=== PATIENT | female | born 1960 | race Caucasian/White ===

== ENCOUNTER 2019-11-07 00:16 | Outpatient (CLI) | payer BC, SELFPAY ==
[2019-11-07 15:57] LABS: SARS-CoV-2 RNA PCR Negative
== END 2019-11-07 00:17 | disposition home or self-care (01) ==
LOC: ANHCOVIDDT 00:16
PROVIDERS: PCP Physician Assistant; Visit Provider Internal Medicine Gastroenterology
DX: Z01.818 Encounter for other preprocedural examination (principal); Z11.59 Encounter for screening for other viral diseases
CPT/HCPCS: 87635; C9803; U0003

== ENCOUNTER 2019-11-09 05:19 | Day surgery (SDC) | payer BC, SELFPAY ==
[2019-11-01 11:10] VITALS: BMI 27.3
--- NOTE | 2019-11-08 13:34 | WPDANESEPPF ---
Anes - Initial Pre Proc Eval Procedure: Operation Date: 09/23/19 09:00 Proposed Procedures p Screening Colonoscopy - Dayo Stephenson MD Operation Date: 11/09/19 07:30 Proposed Procedures p Screening Colonoscopy - Dayo Stephenson MD Date/Time: 11/08/19 13:34 Surgeon: Dayo Stephenson MD Pre Op Diagnosis: Neoplasm Screening, Hx of Polyps Patient Data Age: 59 Gender: F Height: 5 ft 3 in Weight: 70 kg Allergies Allergy/AdvReac Type Severity Reaction Status Date / Time Latex, Natural Rubber Allergy Intermediate Rash Verified 11/09/19 06:30 Home Medications Medication Instructions Recorded Confirmed Type albuterol sulfate 1 inh INHALATION QID PRN 11/01/19 11/01/19 History Patient hx anesthesia problems: none Family hx anesthesia problems: none PMFSH Past Medical History Medical History COPD (chronic obstructive pulmonary disease) GERD (gastroesophageal reflux disease) Family History Family History Mother No family history of malignant neoplasm Father No family history of hypertension Social History Social History Smoking status: Former smoker Second hand tobacco smoke exposure: Yes Smoking end date: 06/01/15 Alcohol intake: current Anes - Eval Final PreProcedure Day of Procedure 11/08/19 13:34 Patient weight: normal Heart: regular rate and rhythm Lungs: clear to auscultation Airway: Mallampati scale class II Neurological: alert and oriented Last oral intake: >/= 8 hours ASA classification: III Emergent: no Anesthetic plan: proceed Anesthesia type and monitoring: general GIVS and standard monitoring Informed Consent: The patient's anesthetic plan and its attendant risks and benefits were discussed with the patient/family/POA. Questions were solicited and answers provided to the satisfaction of the patient/family/POA.
[2019-11-09 06:31] VITALS: BP 130/80; PULSE 80; RESP 18; TEMP 36.4; O2SAT 100
[2019-11-09] MEDS: LACTATED RINGERS 1,000 ML 150 ML IV CONT (06:42)
--- NOTE | 2019-11-09 07:12 | P.HP_ITS ---
History of Present Illness History of Present Illness Consent: Risks, benefits, and alternatives have been discussed and questions answered. Patient agrees to proceed with procedure. Chief complaint: Neoplasm Screening, Hx of Polyps Narrative: Concha Flores is a 59 year old female Here for colon cancer screening. She had an adenomatous polyp removed about 8 years ago [facility] Past Medical History Medical History COPD (chronic obstructive pulmonary disease) GERD (gastroesophageal reflux disease) Family History Family History Mother No family history of malignant neoplasm Father No family history of hypertension Social History Social History Smoking status: Former smoker Second hand tobacco smoke exposure: Yes Smoking end date: 06/01/15 Alcohol intake: current Meds Home Medications and Allergies Home Medications Medication Instructions Recorded Confirmed Type albuterol sulfate 1 inh INHALATION QID PRN 11/01/19 11/01/19 History Allergies Allergy/AdvReac Type Severity Reaction Status Date / Time Latex, Natural Rubber Allergy Intermediate Rash Verified 11/09/19 06:30 Vital Signs Vital Signs - 24 hr 11/09/19 06:31 Temperature 36.4 C L Pulse Rate 80 Respiratory Rate 18 Blood Pressure 130/80 Pulse Oximetry 100 Exam Resp: Auscultation: clear to auscultation bilaterally Cardio: Rate: regular rate Rhythm: regular rhythm GI: GI Palp: Yes Soft to palpation and No Tenderness to palpation present (GI) Assessment and Plan Assessment and plan (1) Colon cancer screening: Code(s): Z12.11 - Encounter for screening for malignant neoplasm of colon Status: Acute Assessment and Plan: Colonoscopy with possible biopsy or polypectomy or cautery or injection of substances.
[2019-11-09 07:47] VITALS: BP 118/73; PULSE 81; RESP 19; O2SAT 97
[2019-11-09 07:59] VITALS: BP 111/74; PULSE 69; RESP 17; O2SAT 99
[2019-11-09 08:09] VITALS: BP 127/77; PULSE 66; RESP 17; O2SAT 100
== END 2019-11-09 08:19 | disposition home or self-care (01) ==
PROVIDERS: PCP Physician Assistant; Visit Provider Internal Medicine Gastroenterology
PROC: 0DJD8ZZ Inspection of Lower Intestinal Tract, Via Natural or Artificial Opening Endoscopic (ICD-10-PCS; CPT 45378; principal; 2019-11-09 07:30)
DX: Z12.11 Encounter for screening for malignant neoplasm of colon (principal); D12.0 Benign neoplasm of cecum; D12.4 Benign neoplasm of descending colon; Z85.118 Personal history of other malignant neoplasm of bronchus and lung; Z91.040 Latex allergy status
CPT/HCPCS: 45380; 45385; 88305; J2704; J7120

== ENCOUNTER → 2020-06-22 11:50 | Outpatient (CLI) | payer BC, SELFPAY ==
--- NOTE | ~2020-06-22 | MM_ITS ---
EXAMINATION: MM screening octavio BI w luis HISTORY: Screening mammogram TECHNIQUE: Craniocaudal and mediolateral oblique 3-D tomosynthesis images were obtained and synthetic 2-D images were generated.. Bilateral rotated lateral cc views. CAD analysis was submitted and inter preted. COMPARISON: 03/12/2019, 08/12/2017 bilateral digital screening mammogram examinations BREAST PARENCHYMAL COMPOSITION: There are scattered areas of fibroglandular density. FINDINGS: There is a biopsy marker on the right; history of prior benign right breast biopsy in 2016. Stable fibroglandular asymmetry. There is no evidence of suspicious mass, calcification, or architec tural distortion to suggest malignancy in either breast. There has been no suspicious interval change . IMPRESSION: 1. No mammographic evidence of malignancy. 2. Recommend routine screening mammography in one year. BI-RADS Category 2: Benign finding(s). Reviewed, dictated and finalized at location A. GEMENT INTERN
== END ==
PROVIDERS: Visit Provider Physician Assistant
DX: Z12.31 Encounter for screening mammogram for malignant neoplasm of breast (principal)
CPT/HCPCS: 77063; 77067

== ENCOUNTER 2020-08-14 08:45 | Outpatient (CLI) | payer BC, SELFPAY | END 2020-08-14 08:46 | disposition home or self-care (01) | LOC: ANHCOVIDVC 08:45 | DX: Z23 Encounter for immunization (principal) | CPT/HCPCS: 0001A; 91300 ==

== ENCOUNTER 2020-08-20 14:56 | Outpatient (CLI) | payer BC, SELFPAY ==
[2020-08-20 15:40] LABS: Hematocrit 38.8 % (37.0-47.0); Hemoglobin 13.1 g/dL (12.0-15.0); Mean Corpuscular HGB Conc 33.8 g/dl (32-36); Mean Corpuscular Hemoglobin 33.3 pg (26-34); Mean Corpuscular Volume 98.7 fl (80-100); Mean Platelet Volume 10.4 fl (7.4-10.4); Platelet Count Result 405 k/mm3 (150-375); Red Blood Count 3.93 M/mm3 (4.2-5.4); Red Cell Distribution Width 12.8 % (11.5-14.5); White Blood Count 7.3 K/mm3 (4.5-10.0)
[2020-08-20 15:50] LABS: Alanine Aminotransferase 50 U/L (4-35); Albumin Level 4.6 g/dL (3.5-5.1); Alkaline Phosphatase 73 U/L (38-126); Anion Gap 8 mmol/L (8-16); Aspartate Amino Transferase 62 U/L (14-36); Bilirubin,Total 0.4 mg/dL (0.2-1.3); Blood Urea Nitrogen 11 mg/dL (7-17); Carbon Dioxide 29 mmol/L (22-30); Chloride 100 mmol/L (98-107); Estimated Glomerular Filt Rate > 60; Glucose 89 mg/dL (65-105); Potassium 4.3 mmol/L (3.4-5.0); Sodium 137 mmol/L (137-145)
[2020-08-20 16:31] LABS: Iron 282 ug/dL (37-170)
[2020-08-20 16:41] LABS: Percent Iron Saturation 111 % (20-50)
== END 2020-08-20 14:57 | disposition home or self-care (01) ==
LOC: ANHLAB 14:59
PROVIDERS: PCP Internal Medicine; Visit Provider Internal Medicine Hematology & Oncology
DX: E83.19 Other disorders of iron metabolism (principal)
CPT/HCPCS: 36415; 80053; 82728; 83540; 83550; 85027

== ENCOUNTER 2020-09-04 08:33 | Outpatient (CLI) | payer BC, SELFPAY | END 2020-09-04 08:34 | LOC: ANHCOVIDVC 08:33 | PROVIDERS: PCP Internal Medicine | DX: Z23 Encounter for immunization (principal) | CPT/HCPCS: 0002A; 91300 ==

== ENCOUNTER 2020-12-04 09:32 | Outpatient (CLI) | payer BC, SELFPAY ==
[2020-12-04 11:32] LABS: Cholesterol 239 mg/dL (0-200); HDL Direct 51 mg/dL; Triglycerides 135 mg/dL (<150)
[2020-12-04 11:43] LABS: LDL Cholesterol Direct 129 mg/dL
[2020-12-04 11:51] LABS: Free T4 Free Thyroxine 1.17 ng/mL (0.78-2.19)
[2020-12-04 12:38] LABS: Folic Acid 4.1 ng/mL (2.76->20)
== END 2020-12-04 09:33 | disposition home or self-care (01) ==
LOC: ANHLAB 09:37
PROVIDERS: Physician Assistant; PCP Internal Medicine; Visit Provider Internal Medicine Hematology & Oncology
DX: E03.9 Hypothyroidism, unspecified (principal); R74.8 Abnormal levels of other serum enzymes; D58.2 Other hemoglobinopathies
CPT/HCPCS: 36415; 80061; 82607; 82746; 84439; 84443

== ENCOUNTER 2021-12-31 09:04 | Outpatient (CLI) | payer BC, SELFPAY ==
[2021-12-31 15:17] LABS: Cholesterol 230 mg/dL (0-200); HDL Direct 46 mg/dL; Triglycerides 122 mg/dL (<150)
[2021-12-31 15:28] LABS: Free T4 Free Thyroxine 1.26 ng/mL (0.78-2.19)
[2021-12-31 15:28] LABS: LDL Cholesterol Direct 131 mg/dL
[2021-12-31 15:52] LABS: Thyroid Stimulating Hormone 0.968 uIU/mL (0.465-4.680)
[2021-12-31 16:28] LABS: Folic Acid 4.7 ng/mL (2.76->20)
== END 2021-12-31 09:05 | disposition home or self-care (01) ==
LOC: ANHLAB 09:05
PROVIDERS: PCP Physician Assistant; Visit Provider Internal Medicine Hematology & Oncology
DX: Z00.00 Encounter for general adult medical examination without abnormal findings (principal); E03.9 Hypothyroidism, unspecified
CPT/HCPCS: 36415; 80061; 82607; 82746; 84439; 84443

== ENCOUNTER → 2022-10-03 12:39 | Outpatient (CLI) | payer BC, SELFPAY ==
--- NOTE | ~2022-10-03 | MM_ITS ---
EXAMINATION: MM screening octavio BI w luis HISTORY: Screening mammogram TECHNIQUE: Craniocaudal and mediolateral oblique 3-D tomosynthesis images were obtained and synthetic 2-D images were generated. CAD analysis was submitted and interpreted. COMPARISON: 06/22/2020, 03/12/2019 BREAST PARENCHYMAL COMPOSITION: There are scattered areas of fibroglandular density. FINDINGS: There is a stable focal asymmetry in the middle third of the inner right breast with an ass ociated biopsy marker. No suspicious mass, calcification, or architectural distortion are identified in either breast to suggest malignancy. There has been no suspicious interval change. IMPRESSION: 1. No mammographic evidence of malignancy. 2. Recommend routine screening mammography in one year. BI-RADS Category 2: Benign finding(s). Reviewed, dictated and finalized at location A.
== END ==
PROVIDERS: PCP Physician Assistant; Visit Provider Physician Assistant
DX: Z12.31 Encounter for screening mammogram for malignant neoplasm of breast (principal)
CPT/HCPCS: 77063; 77067

== ENCOUNTER 2023-01-16 14:42 | Outpatient (CLI) | payer BC, SELFPAY ==
[2023-01-16 16:32] LABS: Cholesterol 263 mg/dL (0-200); HDL Direct 54 mg/dL; Triglycerides 199 mg/dL (<150)
[2023-01-16 16:37] LABS: Rheumatoid Factor < 12.0 IU/ML (<12)
[2023-01-16 16:43] LABS: Erythrocyte Sedimentation Rate 18 mm/hr (0-20); LDL Cholesterol Direct 145 mg/dL
[2023-01-16 16:58] LABS: Free T4 Free Thyroxine 1.52 ng/mL (0.78-2.19)
[2023-01-16 17:07] LABS: Thyroid Stimulating Hormone 0.812 uIU/mL (0.465-4.680)
== END 2023-01-16 14:43 | disposition home or self-care (01) ==
LOC: ANHLAB 14:45
PROVIDERS: PCP Physician Assistant; Visit Provider Internal Medicine Hematology & Oncology
DX: Z00.00 Encounter for general adult medical examination without abnormal findings (principal); E03.9 Hypothyroidism, unspecified; M25.50 Pain in unspecified joint
CPT/HCPCS: 36415; 80061; 84439; 84443; 85652; 86430

== ENCOUNTER 2023-07-13 09:16 | Outpatient (CLI) | payer BC, SELFPAY ==
--- NOTE | ~2023-07-13 | US_ITS ---
Limited Abdominal Sonogram: Real-time sonographic imaging of the right upper quadrant was performed. Clinical History: Hereditary hemochromatosis Findings: The liver appears normal with no evidence of mass lesion or bile duct dilatation. Main por hilaria vein demonstrates normal direction of flow. The gallbladder is well distended, and appears normal with no evidence of gallstone or wall thickening. The common bile duct measures 5 mm. The visualize d pancreas, aorta, and IVC are unremarkable. Impression: No significant abnormality seen. Reviewed, dictated and finalized at location M. Y LINE TECHNICIAN Impression: No significant abnormality seen.
== END 2023-07-13 09:17 | disposition home or self-care (01) ==
PROVIDERS: PCP Physician Assistant; Visit Provider Student in an Organized Health Care Education/Training Program
DX: E83.110 Hereditary hemochromatosis (principal)
CPT/HCPCS: 76705

== ENCOUNTER 2024-01-20 08:26 | Outpatient (CLI) | payer BC, SELFPAY ==
[2024-01-20 08:44] LABS: Hematocrit 42.7 % (37.0-47.0); Hemoglobin 14.6 g/dL (12.0-15.0); Mean Corpuscular HGB Conc 34.2 g/dl (32-36); Mean Corpuscular Hemoglobin 30.7 pg (26-34); Mean Corpuscular Volume 89.9 fl (80-100); Mean Platelet Volume 10.3 fl (7.4-10.4); Platelet Count Result 366 k/mm3 (150-375); Red Blood Count 4.75 M/mm3 (4.2-5.4); Red Cell Distribution Width 13.3 % (11.5-14.5)
[2024-01-20 10:33] LABS: Cholesterol 246 mg/dL (0-200); Triglycerides 130 mg/dL (<150)
[2024-01-20 10:34] LABS: HDL Direct 49 mg/dL; Iron 82 ug/dL (37-170)
[2024-01-20 10:45] LABS: LDL Cholesterol Direct 144 mg/dL
[2024-01-20 11:00] LABS: Percent Iron Saturation 29 % (20-50)
== END 2024-01-20 08:27 | disposition home or self-care (01) ==
LOC: ANHLAB 08:29
PROVIDERS: Internal Medicine; PCP Physician Assistant; Visit Provider Internal Medicine Hematology & Oncology
DX: E78.5 Hyperlipidemia, unspecified (principal); E03.9 Hypothyroidism, unspecified; E53.8 Deficiency of other specified B group vitamins; E83.110 Hereditary hemochromatosis
CPT/HCPCS: 36415; 80061; 82607; 82728; 83540; 83550; 84443; 85027

== ENCOUNTER 2024-11-29 10:15 | Outpatient (CLI) | payer BC, SELFPAY ==
--- NOTE | ~2024-11-29 | MM_ITS ---
EXAMINATION: MM screening octavio BI w luis HISTORY: Screening mammogram, family history of breast cancer in her sister. TECHNIQUE: Craniocaudal and mediolateral oblique 3-D tomosynthesis images were obtained and synthetic 2-D images were generated. CAD analysis was submitted and interpreted. COMPARISON: 10/03/2022, 06/22/2020 BREAST PARENCHYMAL COMPOSITION:Not Dense. There are scattered areas of fibroglandular density. FINDINGS: No suspicious mass, calcification, or architectural distortion are identified in either ginna ast to suggest malignancy. There has been no suspicious interval change. IMPRESSION: No mammographic evidence of malignancy. Recommend routine screening mammography in one year. BI-RADS Category 1: Negative Reviewed, dictated and finalized at location .
== END 2024-11-29 10:16 | disposition home or self-care (01) ==
LOC: MICIMG 10:16
PROVIDERS: PCP Internal Medicine; Visit Provider Internal Medicine
DX: Z12.31 Encounter for screening mammogram for malignant neoplasm of breast (principal)
CPT/HCPCS: 77063; 77067

== ENCOUNTER 2025-04-05 09:27 | Outpatient (CLI) | payer BC, SELFPAY ==
[2025-04-05 10:08] LABS: Cholesterol 242 mg/dL (0-200); HDL Direct 69 mg/dL; Triglycerides 115 mg/dL (<150)
--- OUTSIDE RECORDS SUMMARY | 2025-04-05 10:10 | XMS_ITS | Clinical Summary ---
Author Organization [facility] Address [address] [facility] [place] [address] Care Team Providers Care Director Of Audiology Name Role Phone Omid Whitehead Primary Care Provider [phone] Allergies Active Allergy Reactions Criticality Noted Date Comments Adhesive Rash Medium 05/17/2020 Medications levothyroxine 50 mcg tablet TK 1 T PO D 04/24/2020 Active celecoxib (CeleBREX) 200 mg capsule Take 200 mg by mouth daily. 12/04/2022 Active Active Problems Problem Noted Date Diagnosed Date Hereditary hemochromatosis 06/12/2020 Iron overload 05/17/2020 Encounters Date Type Department Care Team Description 03/29/2025 External Device Data STL ABSTRACTION Provider, Abstract 03/28/2025 External Device Data STL ABSTRACTION Provider, Abstract 01/03/2025 External Device Data STL ABSTRACTION Provider, Abstract from Last 3 Months Family History Medical History Relation Name Comments Healthy Brother Skin Cancer Father Cervical Cancer Mother Healthy Sister Relation Name Status Comments Brother Alive Father Alive Mother Alive Sister Alive Social History Tobacco Use Types Packs/Day Years Used Date Smoking Tobacco: Former Cigarettes Q uit: 11/15/2015 Tobacco Cessation:Counseling Given: Not Answered Alcohol Use Standard Drinks/Week Comments Not Currently 0 (1 standard drink = 0.6 oz pur e alcohol) Comments Unknown Sex and Gender Information Value Date Recorded Sex Assigned at Female 04/03/2025 9:24 AM STRATEGIC ANALYST Legal Sex Female 1:12 PM STRATEGIC ANALYST Gender Identity Female 04/03/2025 9:24 AM STRATEGIC ANALYST Sexual Orientation Not on file Last Filed Vital Signs Vital Sign Reading Time Taken Comments Blood Pressure 120/68 10/07/2024 12:36 PM CDT Pulse 98 10/07/2024 12:36 PM CDT Temperature 36.6 C (97.9 F) 10/07/2024 12:36 PM CDT Respiratory Rate 15 10/07/2024 12:36 PM CDT Oxygen Saturation 97% 10/07/2024 12:36 PM CDT Inhaled Oxygen Concentration - - Weight 62 kg (136 lb 9.6 oz) 10/07/2024 12:36 PM CDT Height 160 cm (5' 3) 03/05/2022 3:16 PM CDT Body Mass Index 24.2 03/05/2022 3:16 PM CDT Plan of Treatment Upcoming Encounters Date Type Department Care Team (Late st Contact Info) Description 04/10/2025 3:30 PM STRATEGIC ANALYST Office Visit [facility] Oncology and Hematology [facility] [address] [facility] [address] [place] [address] Harjinder Kramer MD [address] [facility] [address] [place] [address] Health Maintenance Due Date Last Done Comments DTAP/TDAP/TD VACCINES (1 - Tdap) 1980 BREAST CANCER SCREENING 2001 COLORECTAL SCREENING 2006 Colorectal Cancer Screening 2006 FIT-DNA Q 3 years 2006 FIT/FOBT Q 1 year 2006 Flex Sig/CT Colonography Q 5 years 2006 RSV VACCINE (60+ or ) (1 - Risk 50-74 years 1-dose series) 08/13/2011 ZOSTER VACCINE (1 of 2) 08/13/2011 Preventative Visit- Commercial 06/01/2024 INFLUENZA VACCINE (#1) 2024 Insurance [facility] Care Teams Director Of Audiology Relationship Specialty Start Date End Date Omid Whitehead DO [address] [facility] [address] [facility] [address] [place] [id number] PCP - General Internal Medicine 03/24/24
--- OUTSIDE RECORDS SUMMARY | 2025-04-05 10:10 | XMS_ITS | Clinical Summary ---
Author Organization [facility] Address [address] [place] [address] Care Team Providers Care Outside Maintenance Worker Name Role Phone Omid Whitehead Primary Care Provider [phone] Allergies Active Allergy Reactions Criticality Noted Date Comments Adhesive Rash Medium Latex, Natural Rubber Rash Medium 08/19/2021 Medications cholecalciferol (VITAMIN D-3) 2,000 unit tablet Active azithromycin (ZITHROMAX) 250 mg tablet Take by mouth. 09/10/2010 Active escitalopram (LEXAPRO) 10 mg tablet Take 10 mg by mouth. Active estradiol (VIVELLE-DOT) 0.05 mg/[address] 1 patch on the skin every 3 (three) days. Active raNITIdine (ZANTAC) 150 mg tablet Take 150 mg by mouth 06/04/2010 Active predniSONE (DELTASONE) 10 mg tablet Take by mouth. 10/01/2010 Active ezetimibe-simva statin (VYTORIN) 10-20 mg per tablet Take 1 tablet by mouth. 04/29/2010 Active citalopram (CeleXA) 20 mg tablet 11/19/2017 Active levoFLOXacin (LEVAQUIN) 500 mg tablet 11/06/2017 Active predniSONE (DELTASONE) 20 mg tablet 11/06/2017 Active sulfamethoxazol e-trimethoprim (BACTRIM,SEPTRA ) 800-160 mg per tablet 10/27/2017 Active levothyroxine (SYNTHROID) 50 mcg tablet TK 1 T PO D 04/24/2020 Active cyanocobalamin- cobamamide 5,000-100 mcg tablet, sublingual Place 5,000 mcg under the tongue daily Active celecoxib (CeleBREX) 200 mg capsule Take 1 capsule (200 mg total) by mouth daily 12/04/2022 Active cyanocobalamin (Vitamin B-12) 500 mcg tablet Take 1 tablet (500 mcg total) by mouth daily Active traMADoL (ULTRAM) 50 mg tablet Take 1 tablet (50 mg total) by mouth 11/10/2024 Active Active Problems Patient Care Coordination No te Formatting of this note migh t be different from the original. Dr. Lin [place], [place] Unsure of first name or practice name Problem Noted Date Diagnosed Date Pulmonary emphysema 11/01/2015 Malignant neoplasm of lung 11/01/2015 Encounter for preventive health examination 09/30 Encounters Date Type Department Care Team Description 01/25/2025 1:00 PM CDT Office Visit [facility] Medicine Surgery [address] [facility] [address] [facility] [address] [place] [address] Arnie Stovall MD History of lung cancer (Primary Dx) 01/25/2025 11:32 AM CDT - 01/25/2025 11:59 PM CDT Hospital Encounter [facility] [address] [place] [address] Arnie Stovall MD Malignant neoplasm of upper lobe of right lung (HCC) Discharge Disposition: Discharge to home or self care from Last 3 Months Surgical History Surgery Date Site/Laterality Comments MD TOTAL ABDOMINAL HYSTERECT W/WO RMVL TUBE OVARY Hysterectomy - (2002). (Added by TW Conv) MD BIOPSY LUNG/MEDIASTINUM PERCUTANEOUS NEEDLE Biopsy Lung Percutaneous - (Added by TW Conv) MD TONSILLECTOMY PRIMARY/SECONDARY <AGE 12 Tonsillectomy - (Added by TW Conv) Medical History Medical History Date Comments Personal history of other di seases of the digestive system History of irritable bowel s yndrome - (Added by TW Conv) Personal history of other di seases of the digestive system History of esophageal reflux - (Added by TW Conv) Closed fracture of nasal bone Br oken nose - (Added by TW Conv) Family History Medical History Relation Name Comments Hyperlipidemia Father Family histor y of hypercholesterolemia - (Added by TW Conv) Hypertension Father Family history of hypertension - (Added by TW Conv) COPD Mother Family history of chronic obstructive pulmonary disease - (Added by TW Conv) Emphysema Mother Emphysema/COPD - (Added by TW Conv) Uterine cancer Mother Family histor y of malignant neoplasm of uterus - (Added by TW Conv) Skin cancer Other 1 Family history of skin cancer - (Added by TW Conv) Heart defect Other 2 Heart problem - (Added by TW Conv) Heart defect Paternal Grandmother Heart p roblem - (Added by TW Conv) Scleroderma Paternal Grandmother Family history of scleroderma - (Added by TW Conv) Relation Name Status Comments Father Mother Other 1 Other 2 Paternal Grandmother Social History Tobacco Use Types Packs/Day Years Used Date Smoking Tobacco: Former Smokeless Tobacco: Never Comments Unknown Sex and Gender Information Value Date Recorded Sex Assigned at Not on file Legal Sex Female 6:53 PM TRAVELERS' AID WORKER Gender Identity Not on file Sexual Orientation Not on file Last Filed Vital Signs Vital Sign Reading Time Taken Comments Blood Pressure 113/72 01/25/2025 12:11 PM CDT Pulse 84 01/25/2025 12:11 PM CDT Temperature 36.3 C (97.3 F) 01/25/2025 12:11 PM CDT Respiratory Rate 16 01/25/2025 12:11 PM CDT Oxygen Saturation 97% 01/25/2025 12:11 PM CDT Inhaled Oxygen Concentration - - Weight 60.9 kg (134 lb 3.2 oz) 01/25/2025 12:11 PM CDT Height 157.5 cm (5' 2) 01/25/2025 12:11 PM CDT Body Mass Index 24.55 01/25/2025 12:11 PM CDT Plan of Treatment Health Maintenance Due Date Last Done Comments Breast Cancer Screening-Mammogram 1961 Cervical Cancer Screening 1961 Colon Cancer Screening-Colonoscopy 1961 Depression Screening 1961 Hepatitis C Screening 1961 Hepatitis B Screening 08/13/1979 Regular Well Visit/Exam 18-64 08/13/1979 Zoster Vaccine (1 of 2) 08/13/2011 Pneumococcal vaccine <65 (2 of 2 - PCV) 07/26/2014 0 07/26/2013 DTaP/Tdap/Td Vaccine (2 - Td or Tdap) 06/12/202205/2013 Covid-19 Vaccine (3 - season) 01/30/202510/2020, 08/14/2020 Influenza Vaccine (#1) 2025 Procedures Procedure Name Priority Date/Time Associated Diagnosis Comments CT CHEST WO CONTRAST Schedule Routine, Read Routine (OP Routine) 01/25/2025 11:54 AM CDT Malignant neoplasm of upper lobe of right lung (HCC) from Last 3 Months Results * CT chest without contrast (01/25/2025 11:54 AM CDT) Anatomical Region Laterality Modality Body N/A Computed Tomogra phy 01/25/2025 12:0 1 PM CDT Impressions 01/25/2025 12:01 PM CDT 1. Stable postoperative change without evidence of metastasis or recurrence. Electronically signed by: Doroteo Blair M.D. Narrative 01/25/2025 12:01 PM CDT EXAMINATION: Computed tomography of the chest without intravenous contrast HISTORY: Pulmonary nodule follow-up; right upper lobe lung cancer TECHNIQUE: Transaxial computed tomographic images of the chest were obtained without intravenous contrast according to the standard protocol. COMPARISON: December 2023 FINDINGS: Right upper lobectomy change is again seen without suspicious findings of the resection site or ligated structures. There is mild severity paraseptal and centrilobular emphysematous changes in the upper lung predominant distribution. No suspicious pulmonary nodule or mass. No acute consolidation in the lung. Heart size within normal limit. Coronary calcifications. There are benign calcified right hilar granulomatous lymph nodes are stable. No suspicious thoracic lymphadenopathy. Upper abdomen is without suspicious findings for malignancy. There is mild thoracic and moderate to severe abdominal aortic atherosclerotic calcifications. No suspicious osseous lesion. Procedure Note Doroteo Blair MD - 01/25/2025 EXAMINATION: Computed tomography of the chest without intravenous contrast HISTORY: Pulmonary nodule follow-up; right upper lobe lung cancer TECHNIQUE: Transaxial computed tomographic images of the chest were obtained without intravenous contrast according to the standard protocol. COMPARISON: December 2023 FINDINGS: Right upper lobectomy change is again seen without suspicious findings of the resection site or ligated structures. There is mild severity paraseptal and centrilobular emphysematous changes in the upper lung predominant distribution. No suspicious pulmonary nodule or mass. No acute consolidation in the lung. Heart size within normal limit. Coronary calcifications. There are benign calcified right hilar granulomatous lymph nodes are stable. No suspicious thoracic lymphadenopathy. Upper abdomen is without suspicious findings for malignancy. There is mild thoracic and moderate to severe abdominal aortic atherosclerotic calcifications. No suspicious osseous lesion. IMPRESSION: 1. Stable postoperative change without evidence of metastasis or recurrence. Electronically signed by: Doroteo Blair M.D. Arnie Stovall MD IMG CT PROCEDURES Final R esult from Last 3 Months Insurance [employer] ACC[employer] ACCESS Member Subscriber Plan / Payer (Ef fective 2019-Present) Name:Concha Flores Member ID:[id number] Relation to Subscriber:Self Name:Concha Flores Subscriber ID:[id number] Payer ID:[id number] (NAIC) Type:[employer] Address: [address] ACCESS OOS ANTHEM ACCESS Care Teams Outside Maintenance Worker Relationship Specialty Start Date End Date Omid Whitehead DO PCP - General Internal Medicine 01/12/24
--- OUTSIDE RECORDS SUMMARY | 2025-04-05 10:10 | XMS_ITS | Clinical Summary ---
Author Organization [facility] Address [address] [place] [address] Care Team Providers Care Sports Bookmaker Name Role Phone Unavailable Primary Care Provider Unavailabl e Source Comments [facility],non-owned Affiliates and Associated Physician Practices is amultiple site organization consisting of ambulatory clinics and hospital sitesin [place], [place] and [place]. This disclosure is being madepursuant to the Care Everywhere program and may not contain all information available regarding this patient. Last updated 18.[facility] Allergies No known active allergies Medications * Be aware that medications may not be up to date on this document. Alwaysverify current medications with the patient. ezetimibe-simva statin (VYTORIN) 10-20 MG tablet Take 1 Tab by mouth at bedtime. 30 Tab 11 04/29/2010 Active ranitidine (ZANTAC) 150 MG tabletIndicatio ns:GERD (gastroesophage al reflux disease) Take 1 Tab by mouth 2 times daily. 60 Tab 5 06/04/2010 Active estradiol (VIVELLE) 0.05 MG/24HR patch Apply 1 Patch to skin every 3 days. Active escitalopram (LEXAPRO) 10 MG tablet Take 10 mg by mouth daily. Active azithromycin (ZITHROMAX) 250 mg yudith Take by mouth. 2 tablets day 1, then 1 tablet daily for 4 days 1 Tab 0 09/10/2010 Active predniSONE (DELTASONE) 10 MG tablet Take by mouth. 4 daily for 3 days, 3 daily for 3 days, 2 a day for 3 days, once daily for 3 days. 30 Tab 0 10/01/2010 Active Active Problems Problem Noted Date Diagnosed Date Hyperlipidemia GERD (gastroesophageal reflux disease) Colon polyp Family History Medical History Relation Name Comments Hypertension Father Stroke Other Grandparents Relation Name Status Comments Father Other Social History Tobacco Use Types Packs/Day Years Used Date Smoking Tobacco: Every Day Cigarettes Smokeless Tobacco: Never Alcohol Use Standard Drinks/Week Comments Yes 0 (1 standard drink = 0.6 oz pur e alcohol) 3-4 M - F Comments No Sex and Gender Information Value Date Recorded Sex Assigned at Not on file Legal Sex Female 6:47 AM FRUIT CANNER Gender Identity Not on file Sexual Orientation Not on file Last Filed Vital Signs Vital Sign Reading Time Taken Comments Blood Pressure 107/78 08/15/2010 7:44 AM CDT Pulse 72 08/15/2010 7:44 AM CDT Temperature - - Respiratory Rate 12 06/04/2010 3:42 PM FRUIT CANNER Oxygen Saturation 99% 08/15/2010 8:41 AM CDT Inhaled Oxygen Concentration - - Weight 65.8 kg (145 lb) 08/15/2010 7:44 AM CDT Height 160 cm (5' 3) 08/15/2010 7:44 AM CDT Body Mass Index 25.69 08/15/2010 7:44 AM CDT Plan of Treatment Health Maintenance Due Date Last Done Comments COLOGUARD (AGES 45-75) - COL ON CA SCREENING 1961 COLON MONITORING 1961 COLONOSCOPY - COLON CA SCREENING 1961 CT COLONOGRAPHY - COLON CA SCREENING 1961 Colorectal Cancer Screening 1961 FIT - COLON CA SCREENING 1961 FLEX SIG - COLON CA SCREENING 1961 MAMMOGRAM 1961 HIV SCREENING 1976 HEPATITIS C SCREENING 08/08/1979 DTAP/TDAP/TD VACCINES (1 - Tdap) 1980 PNEUMOCOCCAL VACCINE 50+ (1 of 2 - PCV) 1980 ZOSTER VACCINE (1 of 2) 08/13/2011 DEPRESSION SCREENING 06/01/2024 COVID-19 VACCINE (1 - 2024-2 5 season) 2025 INFLUENZA VACCINE (#1) 2025 Respiratory Syncytial Virus (RSV) Vaccine Pt: or over 60 yrs (1 - 1-dose 75+ series) 2036 HEPATITIS B VACCINE Aged Out No longe r eligible based on patient's age to complete this topic HIB VACCINE Aged Out No longer eligi ble based on patient's age to complete this topic HPV VACCINE Aged Out No longer eligi ble based on patient's age to complete this topic MENINGOCOCCAL (Group B) VACC INE SHARED DECISION-MAKING Aged Out No longer eligibl e based on patient's age to complete this topic MENINGOCOCCAL GROUPS A/C/Y/W VACCINE Aged Out No longer eligible b ased on patient's age to complete this topic
--- OUTSIDE RECORDS SUMMARY | 2025-04-05 10:10 | XMS_ITS ---
Author Organization [facility] Address [address] [place] [address] Care Team Providers Care Copper Roller Handler Printing Name Role Phone VenturaOmid david Primary Care Provider [phone] Active Problems Patient Care Coordination No te Formatting of this note migh t be different from the original. Dr. Lin [place], [place] Unsure of first name or practice name Problem Noted Date Diagnosed Date Pulmonary emphysema 11/01/2015 Malignant neoplasm of lung 11/01/2015 Encounter for preventive health examination 09/30 Current Treatment and Therapy Plans No current plan information found. Past Treatment and Therapy Plans No past plan information found. Lifetime Dose Tracking * Chemical Lifetime Dose Automatic Entry Manual Entr y DLP 1,856 mGycm 1,856 mGycm 0 mGycm
[2025-04-05 10:34] LABS: Free T4 Free Thyroxine 1.44 ng/dL (0.78-2.19)
[2025-04-05 10:45] LABS: Thyroid Stimulating Hormone 1.930 uIU/mL (0.465-4.680)
== END 2025-04-05 09:28 | disposition home or self-care (01) ==
PROVIDERS: PCP Internal Medicine; Visit Provider Internal Medicine
DX: E03.9 Hypothyroidism, unspecified (principal); E78.5 Hyperlipidemia, unspecified
CPT/HCPCS: 36415; 80061; 84439; 84443

== ENCOUNTER 2025-05-15 11:19 | Outpatient (CLI) | payer BC, SELFPAY ==
[2025-05-15 11:46] LABS: Hematocrit 53.6 % (37.0-47.0); Hemoglobin 18.6 g/dL (12.0-15.0); Immature Granulocyte Percent A 0.3 % (0-0.5); Lymphocytes Absolute Auto 1.79 K/mm3 (0.9-3.2); Mean Corpuscular HGB Conc 34.7 g/dl (32-36); Mean Corpuscular Hemoglobin 31.2 pg (26-34); Mean Corpuscular Volume 89.9 fl (80-100); Nucleated Red Blood Cells Absolute Auto 0.000 K/mm3 (0.0-0.012); Nucleated Red Blood Cells Perc 0.0 % (0.0-0.2); Platelet Count Result 355 k/mm3 (150-375); Red Blood Count 5.96 M/mm3 (4.2-5.4); White Blood Count 9.2 K/mm3 (4.5-10.0)
[2025-05-15 16:29] LABS: Iron 88 ug/dL (37-170)
[2025-05-15 16:32] LABS: Alanine Aminotransferase 17 U/L (6-35); Albumin Level 4.8 g/dL (3.5-5.1); Alkaline Phosphatase 73 U/L (38-126); Anion Gap 10 mmol/L (4-12); Aspartate Amino Transferase 59 U/L (14-36); Bilirubin,Total 0.7 mg/dL (0.2-1.3); Blood Urea Nitrogen 5 mg/dL (7-17); Calcium 9.6 mg/dL (8.4-10.2); Carbon Dioxide 25 mmol/L (22-30); Chloride 96 mmol/L (98-107); Estimated Glomerular Filt Rate > 60; Glucose 114 mg/dL (65-110); Potassium 3.9 mmol/L (3.4-5.0); Sodium 131 mmol/L (137-145); Total Protein 8.4 g/dL (6.3-8.2)
[2025-05-15 16:40] LABS: Percent Iron Saturation 26 % (20-50)
[2025-05-15 17:13] LABS: Ferritin 18.10 ng/mL (11.1-264)
== END 2025-05-15 11:20 | disposition home or self-care (01) ==
LOC: ANHLAB 11:21
PROVIDERS: PCP Internal Medicine; Visit Provider Internal Medicine Hematology & Oncology
DX: D75.1 Secondary polycythemia (principal); E83.110 Hereditary hemochromatosis
CPT/HCPCS: 36415; 80053; 82728; 83540; 83550; 85025